=== PATIENT | male | born 1960 | race Caucasian/White ===

== ENCOUNTER 2025-06-29 08:28 | Emergency (ER) | payer BC, MEDICARE ==
[~2025-06-29] VITALS: Ht 180.3 cm; Wt 77.6 kg
[2025-06-29] MEDS ORDERED: D-3-50003 PO (08:44)
[2025-06-29] MEDS ORDERED: PRED5TA PO (08:44)
[2025-06-29] MEDS ORDERED: ZYTI250T PO (08:45)
[2025-06-29] MEDS ORDERED: PROBCAP14 PO (08:46)
[2025-06-29] MEDS ORDERED: CALC600T60 PO (08:48)
[2025-06-29] MEDS ORDERED: RELU120T PO (08:48)
[2025-06-29] MEDS ORDERED: VENTAER INH (08:48)
[2025-06-29 12:51] LABS: BASO # 0.0 10^3/uL (0.0-0.2); BASO % 0.2 % (0.0-1.0); EOS # 0.0 10^3/uL (0.0-0.5); EOS % 0.2 % (0.0-3.0); LYMPH # 1.8 10^3/uL (1.5-5.0); LYMPH % 15.4 % (24.0-44.0); MONO # 0.6 10^3/uL (0.0-0.8); MONO % 5.2 % (2.0-8.0); NEUTROPHILS # 9.1 10^3/uL (1.5-8.5); NEUTROPHILS % 78.3 % (36.0-66.0); PLATELET COUNT, AUTOMATED 326 10^3/uL (150-450)
[2025-06-29 13:23] LABS: C REACTIVE PROTEIN QUANTITATIV 3.0 MG/DL (<1.0)
[2025-06-29 13:24] LABS: CALCIUM LEVEL 9.4 MG/DL (8.3-10.6); CARBON DIOXIDE LEVEL 28.0 MMOL/L (20-31); CHLORIDE LEVEL 101.0 MMOL/L (98-107); CREATININE FOR GFR 1.04 MG/DL (0.70-1.30); GLOMERULAR FILTRATION RATE 80.2 (>49); POTASSIUM SERUM 4.6 MMOL/L (3.5-5.1); SODIUM LEVEL 136.0 MMOL/L (136-145)
[2025-06-29] MEDS: metroNIDAZOLE 500 MG in IV 1 EA IV ONE (14:20)
[2025-06-29] MEDS: cefTRIAXone SOD 2 GM in DEXTROSE 5% (D5W) ADV/MINI-BAG 50 ML IV ONE (14:40)
[2025-06-29 15:30] VITALS: BP 131/62; TEMP 98
[2025-06-29] MEDS ORDERED: METR-265 PO (15:43)
[2025-06-29] MEDS ORDERED: CEFU50TA PO (15:43)
[2025-06-29 15:45] VITALS: O2SAT 98
== END 2025-06-29 15:55 | disposition home or self-care (01) ==
LOC: M ED 08:28
DX: K04.7 Periapical abscess without sinus (principal); R59.0 Localized enlarged lymph nodes; Z79.52 Long term (current) use of systemic steroids; Z79.2 Long term (current) use of antibiotics; Z79.899 Other long term (current) drug therapy; Z88.0 Allergy status to penicillin
CPT/HCPCS: 80048; 85025; 85652; 86140; 96365; 96375; 99284; J0696; J1836